=== PATIENT | male | born 1945 ===

== ENCOUNTER 2017-10-11 11:19 | Day surgery (SDC) | payer OTHER ==
[2017-10-11 10:23] VITALS: BMI 20.7
[2017-10-11] MEDS ORDERED: Lidocaine 2% Inj (20ml) ONE (11:41)
[2017-10-11] MEDS ORDERED: Iodixanol 320 MG/ML 200 ML BOTTLE IV ONE (11:41)
[2017-10-11] MEDS ORDERED: Midazolam 2 MG/2 ML VIAL ONE ×2 (12:00→12:39)
[2017-10-11] MEDS ORDERED: Sodium Chloride 0.45% 1,000 ML IV SCH (13:30)
--- NOTE | 2017-10-11 14:44 | CARDCATH ---
PROCEDURE DATE: 10/11/2017 PROCEDURES: 1. Coronary angiogram. 2. Percutaneous coronary intervention up to the marginal artery with drug-eluting stent placement. CLINICAL INDICATIONS: 1. Chest pain. 2. Non-ST elevation myocardial infarction. 3. History of coronary artery disease and CABG. 4. Hypertension. 5. Hyperlipidemia. 6. Carotid artery disease, status post carotid artery endarterectomy. PROCEDURE IN DETAIL: After informed consent, the patient was prepped and draped in the usual sterile fashion. A 2% lidocaine was given in the right groin for local anesthesia. Using micropuncture technique, a 6-Portuguese sheath was introduced into right common femoral artery. The patient was preloaded with aspirin, Plavix, and IV heparin. ACT was maintained about 250 throughout the procedure. A 6 Portuguese XB 3.0 guide catheter engaged into left main coronary artery. Contrast injected and left coronary angiogram was done. The left main coronary artery was patent. The LAD 100% occluded in the mid region. Large obtuse marginal artery has a 99% proximal stenosis. Left circumflex coronary artery is patent. Up to the marginal coronary artery threaded with Run[place] coronary wire. The lesion was predilated using 2 x 20 compliant balloon. Later stented with 2.25 x 26 resolute [place] drug-eluting stent. The patient had originally MARIA D II flow distal to the lesion. After the procedure, the patient achieved brisk MARIA D III flow in the culprit artery of the stent placement. Successful coronary intervention of the obtuse marginal coronary artery. The patient observed in the ICU for additional 4 hours in [place]. Then, will be transferred to [facility] for further management. Primitivo Sifuentes MD
[2017-10-11 15:09] VITALS: TEMP 97.5
--- NOTE | 2017-10-11 15:35 | CARD ---
APPROVED REPORT EKG Measurement Heart [id number] <Conclusion> Normal sinus rhythm Left axis deviation ST & T wave abnormality, consider inferior ischemia ST & T wave abnormality, consider anterolateral ischemia Prolonged QT Abnormal ECG
[2017-10-11 18:25] VITALS: PULSE 84; RESP 18; O2SAT 96
[2017-10-11 19:03] VITALS: BP 139/58
== END 2017-10-11 19:00 | disposition short-term general hospital (02) ==
LOC: CATH 11:19 → CCU 13:45 → CATH 19:00 → MERGE 23:01
PROVIDERS: ATTEND Internal Medicine Cardiovascular Disease
DX: I21.4 Non-ST elevation (NSTEMI) myocardial infarction (principal); I25.10 Atherosclerotic heart disease of native coronary artery without angina pectoris; I10 Essential (primary) hypertension; E78.5 Hyperlipidemia, unspecified; I65.29 Occlusion and stenosis of unspecified carotid artery; Z95.1 Presence of aortocoronary bypass graft
CPT/HCPCS: 93005; 93454; 99152; 99153; C1725; C1760; C1769 ×2; C1874; C1887 ×2; C1894; C9600; J1644 ×2; J2250; J3010; J7030; Q9966